=== PATIENT | male | born 1950 | race Caucasian/White ===

== ENCOUNTER → 2017-03-30 | Outpatient (CLI) | payer OTHER ==
[~2017-03-30] VITALS: Ht 180.3 cm; Wt 83.5 kg
== END | disposition home or self-care (01) ==
LOC: Rad HDHVI 09:47
PROVIDERS: ATTEND Internal Medicine Cardiovascular Disease
DX: Z48.812 Encounter for surgical aftercare following surgery on the circulatory system (principal); R06.02 Shortness of breath; Z82.49 Family history of ischemic heart disease and other diseases of the circulatory system
CPT/HCPCS: 78452; 93017; 96374; A9500

== ENCOUNTER → 2017-04-14 | Outpatient (CLI) | payer MEDICARE | END | disposition home or self-care (01) | LOC: Rad HDHVI 08:34 | PROVIDERS: ATTEND Internal Medicine Cardiovascular Disease | DX: R06.02 Shortness of breath (principal) | CPT/HCPCS: 93880 ==

== ENCOUNTER → 2017-11-03 | Outpatient (CLI) | payer MEDICARE ==
[~2017-11-03] MED LIST: FLEC100T21 PO; LATA0.0015 EACHEYE; WARF4TAB33 PO
[2017-11-03 12:19] LABS: Basophils # (auto) 0 uL; Basophils % (auto) 0.5 % (0.0-2.0); Eosinophils # (auto) 0.1 uL; Eosinophils % (auto) 2.1 % (0.0-7.0); Hemoglobin 13.8 g/dL (13.5-17.5); Lymphocytes # (auto) 1.2 uL; Lymphocytes % (auto) 23.1 % (10.0-50.0); Mean Corpuscular Hemoglobin 31.6 pg (28.0-32.0); Mean Corpuscular Hgb Conc. 33.8 g/dL (32.0-36.0); Mean Corpuscular Volume 93.6 fL (80.0-100.0); Monocytes # (auto) 0.4 uL; Neutrophils # (auto) 3.6 uL; Neutrophils % (auto) 67.3 % (37.0-80.0); Nucleated Red Blood Cells % 0.3 %; Platelet Count (auto) 219 10^3/uL (140-450); Red Blood Cells 4.38 10^6/uL (4.5-5.90); Red Cell Distribution Width 13.2 % (11.8-14.3); Urine Blood Negative /uL (Negative); Urine Specific Gravity 1.026 (1.001-1.035); White Blood Cell 5.4 10^3/uL (4.4-10.8)
[2017-11-03 12:23] LABS: Albumin 3.6 g/dL (3.4-5.0); BUN/Creatinine Ratio 18.8; Bilirubin, Total 0.6 mg/dL (0.2-1.0); Calcium 8.7 mg/dL (8.5-10.1); Potassium 4.2 mmol/L (3.5-5.1); Total Protein 6.9 g/dL (6.4-8.2)
[2017-11-03 12:32] LABS: Free T4 (Free Thyroxine) 1.1 ng/dL (0.89-1.76)
[2017-11-03 12:33] LABS: Prostate Specific Antigen 0.48 ng/mL (0.0-4.0)
== END | disposition home or self-care (01) ==
LOC: Rad HDHVI 07:54
PROVIDERS: ATTEND Internal Medicine Cardiovascular Disease
DX: I07.1 Rheumatic tricuspid insufficiency (principal); I65.21 Occlusion and stenosis of right carotid artery; E78.5 Hyperlipidemia, unspecified; D64.9 Anemia, unspecified; I10 Essential (primary) hypertension; E11.9 Type 2 diabetes mellitus without complications; E03.9 Hypothyroidism, unspecified; E55.9 Vitamin D deficiency, unspecified; R97.20 Elevated prostate specific antigen [PSA]; R53.81 Other malaise; D51.9 Vitamin B12 deficiency anemia, unspecified; N39.0 Urinary tract infection, site not specified
CPT/HCPCS: 36415; 80053; 80061; 81003; 82306; 82607; 83036; 84153; 84403; 84439; 84443; 85025; 93306; 93880

== ENCOUNTER → 2017-11-25 | Outpatient (CLI) | payer MEDICARE ==
[~2017-11-25] VITALS: Ht 177.8 cm; Wt 83.9 kg
[2017-11-25 09:15] VITALS: BP 106/66
[2017-11-25 10:00] VITALS: BP 117/66
[2017-11-25 12:37] LABS: Basophils # (auto) 0.1 uL; Basophils % (auto) 1.1 % (0.0-2.0); Eosinophils # (auto) 0.1 uL; Eosinophils % (auto) 1.7 % (0.0-7.0); Hemoglobin 15.4 g/dL (13.5-17.5); Lymphocytes # (auto) 1.4 uL; Lymphocytes % (auto) 25.1 % (10.0-50.0); Mean Corpuscular Hemoglobin 32.6 pg (28.0-32.0); Mean Corpuscular Volume 93.1 fL (80.0-100.0); Monocytes # (auto) 0.5 uL; Monocytes % (auto) 9.3 % (0.0-12.0); Neutrophils # (auto) 3.5 uL; Neutrophils % (auto) 62.8 % (37.0-80.0); Nucleated Red Blood Cells % 0.2 %; Platelet Count (auto) 229 10^3/uL (140-450); Red Blood Cells 4.73 10^6/uL (4.5-5.90); Red Cell Distribution Width 13.2 % (11.8-14.3); White Blood Cell 5.6 10^3/uL (4.4-10.8)
[2017-11-25 12:57] LABS: Partial Thromboplastin Time 26.3 sec (23.78-33.04); Prothrombin Time 10.7 sec (9.27-12.13)
[2017-11-25 13:01] LABS: BUN/Creatinine Ratio 19.5; Calcium 8.7 mg/dL (8.5-10.1); Potassium 4.2 mmol/L (3.5-5.1)
== END | disposition home or self-care (01) ==
LOC: Rad HDHVI 08:38
PROVIDERS: ATTEND Internal Medicine Cardiovascular Disease
DX: Z01.812 Encounter for preprocedural laboratory examination (principal); Z01.810 Encounter for preprocedural cardiovascular examination; I70.0 Atherosclerosis of aorta; I48.91 Unspecified atrial fibrillation; E78.5 Hyperlipidemia, unspecified; I10 Essential (primary) hypertension; E03.9 Hypothyroidism, unspecified; E11.9 Type 2 diabetes mellitus without complications
CPT/HCPCS: 36415; 71046; 80048; 85025; 85610; 85730; 93005; G0463

== ENCOUNTER 2017-11-26 10:52 | Inpatient (IN) | payer MEDICARE ==
[~2017-11-26] VITALS: Ht 180.3 cm; Wt 79.2 kg
[2017-11-26] MEDS ORDERED: LIDOCAINE 2%HCL (LOCAL ANESTH.) INJ 20ML MDV ONE (11:18)
[2017-11-26] MEDS ORDERED: VANCOMYCIN HCL 1000 MG VL ONE (11:23)
[2017-11-26] MEDS ORDERED: ceFAZolin 1GM/100ML 100 ML IV ONE (11:24)
[2017-11-26] MEDS ORDERED: VANCOMYCIN 1GM/250ML 250 ML IV ONE (11:24)
[2017-11-26] MEDS ORDERED: FLEC100T21 PO (12:02)
[2017-11-26] MEDS ORDERED: LATA0.0015 EACHEYE (12:02)
[2017-11-26] MEDS ORDERED: WARF4TAB33 PO (12:02)
[2017-11-26] MEDS ORDERED: fentaNYL CITRATE 100 MCG/2 ML VL ONE (12:20)
[2017-11-26] MEDS ORDERED: MIDAZOLAM HCL 1MG/1ML-2 ML VIAL ONE (12:20)
[2017-11-26] MEDS ORDERED: NITROGLYCERIN 0.4 MG SL TAB SL PRN (13:30)
[2017-11-26] MEDS ORDERED: HYDROcodone-ACET 5/325MG TAB PO PRN (13:30)
[2017-11-26] MEDS ORDERED: ACETAMINOPHEN 325 MG TAB PO PRN (13:30)
[2017-11-26] MEDS ORDERED: MORPHINE SULFATE 8mg/ml INJ SDV IV PRN (13:30)
[2017-11-26 17:00] VITALS: BP 134/76
[2017-11-26] MEDS ORDERED: LATANOPROST 0.005 % OPTH(EYE) SOL 2.5ML EACHEYE SCH (18:00)
[2017-11-26] MEDS ORDERED: ALPRAZolam 0.25 MG TAB PO PRN (19:15)
[2017-11-26] MEDS: MAGNESIUM SULFATE 1GM/100ML 100 ML IV SCH ×2 (19:43→21:03)
[2017-11-26] MEDS: VANCOMYCIN 1GM/250ML 250 ML IV SCH (21:49)
[2017-11-26] MEDS: FLECAINIDE ACETATE 50 MG TAB PO SCH (21:49)
[2017-11-26 22:00] VITALS: BP 98/68
[2017-11-26] MEDS ORDERED: FLECAINIDE ACETATE 50 MG TAB PO SCH (22:00)
[2017-11-27 04:53] VITALS: BP 127/77
[2017-11-27 09:00] VITALS: BP 112/78
[2017-11-27] MEDS: FLECAINIDE ACETATE 50 MG TAB PO SCH (09:58)
[2017-11-27] MEDS: VANCOMYCIN 1GM/250ML 250 ML IV SCH (09:58)
== END 2017-11-27 11:30 | disposition home or self-care (01) | DRG 243 ==
LOC: CATH 10:52 → TELE-WESTW 10:53
PROVIDERS: ADMIT Internal Medicine Cardiovascular Disease; ATTEND Internal Medicine Cardiovascular Disease
PROC: 0JH606Z Insertion of Pacemaker, Dual Chamber into Chest Subcutaneous Tissue and Fascia, Open Approach (ICD-10-PCS; principal; 2017-11-26)
PROC: 02H63JZ Insertion of Pacemaker Lead into Right Atrium, Percutaneous Approach (ICD-10-PCS; 2017-11-26)
PROC: 02HK3JZ Insertion of Pacemaker Lead into Right Ventricle, Percutaneous Approach (ICD-10-PCS; 2017-11-26)
DX: I49.5 Sick sinus syndrome (principal); D68.59 Other primary thrombophilia; I48.91 Unspecified atrial fibrillation; I48.92 Unspecified atrial flutter; I10 Essential (primary) hypertension
CPT/HCPCS: 33208; 36415; 71045; 71046; 80048; 85025; 85610; 85730; 93005; 99152; C1785; G0463; J0690; J2250

== ENCOUNTER → 2018-02-23 | Outpatient (CLI) | payer MEDICARE | END | disposition home or self-care (01) | LOC: Rad HDHVI 09:55 | PROVIDERS: ATTEND Internal Medicine Cardiovascular Disease | DX: I67.2 Cerebral atherosclerosis (principal); R41.0 Disorientation, unspecified | CPT/HCPCS: 70450 ==